=== PATIENT | male | born 2000 | race Caucasian/White ===

== ENCOUNTER 2021-09-24 01:44 | Emergency (ER) | payer SELFPAY ==
[~2021-09-24] VITALS: Ht 180.3 cm; Wt 107.5 kg
[2021-09-24 01:55] VITALS: BP 120/72
[2021-09-24] MEDS ORDERED: DOXY-487 PO (03:29)
[2021-09-24 03:38] VITALS: BP 120/72
== END 2021-09-24 03:38 | disposition home or self-care (01) ==
LOC: MED 01:44
DX: T63.301A Toxic effect of unspecified spider venom, accidental (unintentional), initial encounter (principal); Z79.899 Other long term (current) drug therapy; Y92.89 Other specified places as the place of occurrence of the external cause
CPT/HCPCS: 99283

== ENCOUNTER 2024-04-05 07:12 | Emergency (ER) | payer MEDICAID ==
[~2024-04-05] VITALS: Ht 180.3 cm; Wt 110.9 kg
[~2024-04-05 07:12] MED LIST: DOXY-487 PO
[2024-04-05 07:18] VITALS: BP 124/65; PULSE 82; RESP 14; TEMP 98.6; O2SAT 99
[2024-04-05] MEDS ORDERED: DOXY-690 PO (07:39)
[2024-04-05 07:49] VITALS: BP 124/65; PULSE 82; RESP 14; TEMP 98.6; O2SAT 99
== END 2024-04-05 07:49 | disposition home or self-care (01) ==
LOC: MED 07:12
DX: L03.116 Cellulitis of left lower limb (principal); Z79.899 Other long term (current) drug therapy
CPT/HCPCS: 99283